=== PATIENT | female | born 1985 | race Caucasian/White ===

== ENCOUNTER 2020-05-13 05:30 | Inpatient (IN) | payer MEDICAID, SELFPAY ==
[2020-05-13] VITALS (35 sets, daily range): BP systolic 116–139; BP diastolic 70–95; PULSE 77–111; RESP 16–17; TEMP 36.3–36.7; O2SAT 94–98; BMI 34.2
[2020-05-13] MEDS: lactated ringers 1,000 ML 999 ML IV ×2 (06:30→07:35)
[2020-05-13 06:41] LABS: Basophils % 0.3 %; Eosinophils # 0.2 10^3/uL (0.0-0.8); Eosinophils % 1.5 %; Hematocrit 36.7 % (37.0-47.0); Hemoglobin 12.2 g/dL (11.5-15.3); Lymphocytes # 3.2 10^3/uL (0.8-4.8); Lymphocytes % 22.3 %; Mean Corpuscular HGB Conc 33.2 g/dL (30.0-36.0); Mean Corpuscular Hemoglobin 28.5 pg (28.0-34.0); Mean Corpuscular Volume 85.7 fL (81-99); Monocytes % 6.9 %; Neutrophils # 9.89 10^3/uL (1.8-7.7); Neutrophils % 68.7 %; Nucleated Red Blood Cells % 0 %; Platelet Count 190 10^3/cmm (130-400); Red Blood Count 4.28 10^6/uL (4.1-5.3); Red Cell Distribution Width 13.2 % (12.1-15.1); White Blood Count 14.4 10^3/uL (4.0-10.0)
--- NOTE | 2020-05-13 06:57 | ANES.PREANE2 ---
Pre-Anesthetic Assessment Pre-Anesthetic Assessment: Height/Weight: Pulse BP Pulse Ox 93 139/87 97 05/13/20 06:54 05/13/20 05:55 05/13/20 06:54 Preop Diagnosis: prior . Undesired fertility Proposed Procedure: Operation Date: 05/13/20 07:50 Proposed Procedures p Section Repeat With Tubal(Not Applicable) - Hazel Ling MD Was Beta Pepper taken within 24 hours: N/A Last Intake: 00:00 Social: Social History: Tobacco Packs per day: 0.5 Exam: Pre-Anes Outpt Exam: alert, oriented x 3, clear to auscultation bilaterally and regular rate & rhythm Airway: Submandibular: WNL Cervical ROM: WNL MP: 2 Dentition: Full History/ROS: No significant history except as noted and No significant complaints Pulmonary: Pulmonary: None reported CV/HEM: CV/HEM: None reported : : None reported Hepatic: Hepatic: None reported GI: GI: GERD Metabolic: Metabolic: DM Comments: Gestational. Diet controlled Musc/skel: Musc/skel: None reported Neuropsych: Neuropsych: None reported Anesthetic Plan: ASA status: 2 Anesthesia: Anesthesia Evaluation and Regional (specify below) Other: SAB Risk of > 500 ml blood loss (7ml/kg in children): No Meds/Allergies Current Medications: Current Medications Generic Name Dose Route Start Last Admin Trade Name Freq PRN Reason Stop Dose Admin Lactated Ringer's 1,000 mls @ 999 m ls/hr 05/13/20 06:10 05/13/20 06:30 Lactated Ringers IV 05/13/20 07:10 999 mls/hr .Q1H1M ONE Administration Data Anesthesia CBC & Chem 7: 05/13/20 06:23 Other Labs: Laboratory Results - last 48 hr 05/13/20 06:23 WBC 14.4 H RBC 4.28 Hgb 12.2 Hct 36.7 L MCV 85.7 MCH 28.5 MCHC 33.2 RDW 13.2 Plt Count 190 MPV 12.0 H Neut % (Auto) 68.7 Lymph % (Auto) 22.3 [place] % (Auto) 6.9 Eos % (Auto) 1.5 Baso % (Auto) 0.3 Neut # (Auto) 9.89 H Lymph # (Auto) 3.2 [place] # (Auto) 1.0 H Eos # (Auto) 0.2 Baso # (Auto) 0.0 Nucleated RBC % (auto) 0 Nucleated RBCs # 0.0 Cardiac Studies: No Data to Display
[2020-05-13] MEDS: metoclopramide 5 mg/mL SDV 2 mL 10 MG IVP (07:36)
[2020-05-13] MEDS: citric acid-sodium citrate 30 mL UDC PO (07:36)
[2020-05-13] MEDS: famotidine 20 mg/2 mL INJ IVP (07:36)
[2020-05-13 07:47] LABS: Amphetamines Screen Urine Negative (Negative); Barbiturates Screen Urine Negative (Negative); Benzodiazepines Screen Urine Negative (Negative); Cocaine Screen Urine Negative (Negative); Opiate Screen Urine Negative (Negative); PCP Screen Urine Negative (Negative); THC Screen Urine Positive (Negative)
--- NOTE | 2020-05-13 09:17 | P.HP_ITS ---
Providers/Chief Complaint Admitting Physician: Hazel Ling MD Chief Complaint: repeat c section with tubal History of Present Illness Elmira Michaels is a 35 year old female at 39 weeks gestation with a history of prior section who presents for repeat section along with bilateral tubal ligation. Last week at 38 weeks was her first visit with me. She was a transfer due to moving. She started late care at 20 weeks in [place] at [facility]. She had well controlled, diet controlled gestational diabetes mellitus with a hemoglobin A1c of 5.6. She was Covid negative GBS unknown GC chlamydia not detected, rubella immune, RPR nonreactive, HIV nonreactive, hep B surface antigen nonreactive, blood type A+ antibody negative Review of Systems Const: Denies: fever(s), chills or body aches Eyes: Denies: change in vision ENMT: Denies: throat pain Card: Denies: chest pain or palpitations Resp: Denies: dyspnea or productive cough GI: Denies: abdominal pain or vomiting : Denies: flank pain or difficulty voiding Musc: Denies: joint redness or limited range of motion Skin/Breast: Denies: rash Neuro: Denies: headache(s) or numbness in extremities Endo: Denies: polyuria or polydipsia Medications/Allergies Home Medications Medication Instructions Recorded Confirmed Last Taken Type ferrous sulfate [Iron (ferrous 325 mg PO DAILY 05/13/20 05/13/20 05/11/20 Hi story sulfate)] [id number] 1 tab PO DAILY 05/13/20 05/13/20 05/11/20 History [] Allergies Allergy/AdvReac Type Severity Reaction Status Date / Time acetaminophen Allergy ADR-Itching Verified 05/13/20 07:54 [From Darvocet-N] Penicillins Allergy ADR-Itching Verified 05/13/20 07:54 propoxyphene Allergy ADR-Itching Verified 05/13/20 07:54 [From Darvocet-N] Sulfa (Sulfonamide Allergy ADR-Swelling Verified 05/13/20 07:54 Antibiotics) of the Eye PFSH Acute PFSH: Medical History (Updated 05/13/20 @ 09:41 by Hazel Ling MD) Anxiety and depression Surgical History (Updated 05/13/20 @ 09:39 by Hazel Ling MD) Previous section Social History (Updated 05/13/20 @ 09:23 by Hazel Ling MD) Smoking and tobacco status: current every day smoker cigarettes Packs smoked per day: 0.5 [ Other cigarette details: She did cut down in from over 1 pack/day ] Alcohol intake: former Former alcohol use details: Occasional, prior to Substance/Drug Use: former Date of last use: prenatals positive for marijuana Household members: spouse Female Reproductive History: : 4 Para: 2 Spontaneous abortions: Yes Other female reproductive history: First 40 weeks low transverse section for failure to progress Second 40 weeks Third spontaneous Fourth current Vitals/I&O/Wt Last Vital Signs Pulse 90 05/13/20 07:29 Resp 17 05/13/20 06:10 BP 139/87 05/13/20 05:55 Pulse Ox 97 05/13/20 07:29 05/12/20 05/13/20 05/13/20 22:59 06:59 14:59 Output Total 50 / 50 Balance -50 / -50 Weight last 48 hrs Weight 212 lb Physical Exam Const: COMMON NORMALS: no acute distress GENERAL APPEARANCE: cooperative and comfortable HENMT: COMMON NORMALS: normocephalic and atraumatic Chest: COMMONS NORMALS: normal inspection of the chest Resp: COMMON NORMALS: normal respiratory effort EFFORT & INSPECTION: Yes able to speak in complete sentences AUSCULTATION: clear to auscultation bilaterally Cardio: COMMON NORMALS: regular rate and regular rhythm GI: COMMON NORMALS: non-tender (Gravid) Extremity: GENERAL: No calf tenderness Neuro: SENSORIUM/ORIENTATION: Yes alert, Yes oriented to person and Yes oriented to place Data : 05/13/20 06:23 A&P Assessment and plan (1) History of section complicating : Plan for repeat section Status: Acute (2) Encounter for sterilization: From her first visit last week the patient was adamant about having a tubal ligation. She knows it is permanent and not reversible and is requesting it. Status: Acute (3) Late care: Status: Acute (4) Diet controlled gestational diabetes mellitus (GDM) in third trimester: Status: Acute (5) with 39 completed weeks gestation: Status: Acute (6) Tobacco use affecting in third trimester, antepartum: Status: Acute Attestations Medical Necessity Statement*: Routine surgery and postoperative care Coding Level of Care Code Acute Reinsurance Accountant for Chg Fwd Diagnoses History of section complicating O34.219 Encounter for sterilization Z30.2 Late care O09.30 Diet controlled gestational diabetes mellitus (GDM) in third trimester O24.410 with 39 completed weeks gestation Z3A.39 Tobacco use affecting in third trimester, antepartum O99.333
--- NOTE | 2020-05-13 09:42 | PM.OP ---
Operative Report Date of procedure: May 13, 2020 Pre-op Diagnosis: prior . Undesired fertility Post-op diagnosis: same Procedure Done: Repeat low transverse section Via Pfannenstiel skin incision Bilateral tubal ligation Specimens removed/disposition: Vertex male weight 2940 g, 6 pounds 8 ounces, Apgars 8 and 9 Pathology: Segments of right and left fallopian tubes Anesthesia: Other (Hazel Ling MD) Estimated blood loss (mL): 900 IV fluids (mL): 2,400 Urine output (mL): 150 Condition: stable Disposition: floor Procedure: After informed consent the patient was taken to the OR where she was administered spinal anesthesia. She was prepped and draped in normal sterile fashion in dorsal supine position with a left lateral tilt. A Pfannenstiel skin incision was made through her prior scar and carried through to the underlying layer of fascia sharply. The fascial incision was then extended laterally using the Mayos. The fascia was grasped with Jorge A clamps and the underlying rectus muscles were dissected off. The peritoneum was then entered bluntly using a hemostat. The incision site was manually stretched. The bladder blade was then inserted and the vesicouterine peritoneum was identified and entered sharply using the Metzenbaums. The bladder flap was then created digitally and the bladder blade was reinserted Uterine incision was made in a transverse fashion in the lower uterine segment. Amniotic rupture of membranes was performed sharply and clear fluid was noted. The infant was delivered atraumatically with bulb suction of the mouth and nares at delivery. The cord was clamped and cut and the was handed to the waiting pediatric nurse. Cord blood was obtained. The placenta was delivered grossly intact and normal to inspection using just fundal pressure. The uterus was exteriorized from the abdomen. There was a large caliber bleeding vessel in the left lateral aspect of the incision and this was clamped using a ring forcep. This accounts for the majority of the blood loss. It was then tied off using 0 chromic. 0 chromic was used in a running locked fashion to close the first layer of the uterus. A second layer of the same suture was then used in an imbricating manner. Excellent hemostasis was obtained. The right fallopian tube was then grasped with a Ajay and a midportion of the tube was ligated and excised. Tubal ostia were identified. Segment of tube was sent to pathology. The remaining cut portions of the tube were coagulated using the Bovie. The left fallopian tube was then grasped with a Ajay and a proximal portion of the tube was ligated and excised. Tubal ostia were identified. The specimen was sent to pathology. The remaining cut portions of the tube were coagulated using the Bovie. The uterus was then gently returned to the abdomen. Irrigation was used to clear the gutters of clots and debris and the uterine incision was reinspected for hemostasis. The peritoneum was then reapproximated using 4-0 Vicryl in a running fashion. There was a tear in the left rectus muscle that became hemostatic with pressure. The subfascial tissue was inspected for hemostasis and then the fascia was reapproximated using 0 Vicryl in a running fashion. The subcutaneous tissue was irrigated and any small bleeders were coagulated using the Bovie. The subcutaneous tissue was then reapproximated using 4-0 Vicryl in a running fashion. The skin was then reapproximated using 4-0 Vicryl on a Finn needle. Steri-Strips and a pressure bandage were applied and patient went to recovery in stable condition Sponge instrument and needle counts were correct
--- NOTE | 2020-05-13 12:12 | PC.RESP ---
Smoking Cessation information sent to patient.
[2020-05-13] MEDS: ketorolac 30 mg/mL INJ IVP ×2 (12:47→18:15)
--- NOTE | 2020-05-13 14:40 | ANE.PACU2 ---
Inpatient post-anesthesia follow up: Airway intact: Yes Vital signs: Temperature 97.9 F Pulse Rate 98 Respiratory Rate 16 Blood Pressure 120/77 Pulse Oximetry 94 Oxygen Delivery Me thod Room Air Oxygen Flow Rate Fraction of Inspir ed Oxygen Hydration adequate: Yes Nausea and vomiting: No Pain level: 1 Mental status: Baseline
[2020-05-13] MEDS: ondansetron 2 mg/ML SDV 2 mL 4 MG IVP (14:48)
--- NOTE | 2020-05-13 15:31 | PC.NURSE ---
Pt requested to get out of bed at this time. This nurse assisted pt to edge of bed and had her sit and dangle her feet. Pt belched a few times and pt felt nauseous and had a small amount of clear emesis. Pt reported she felt better after vomiting. This nurse then assisted pt to the chair and pt reported feeling nauseas again and had a large amount of clear emesis. This nurse gave pt 4mg Zofran IV Push.
[2020-05-13] MEDS: dextrose 5%-lactated ringers 1,000 ML 125 ML IV (17:30)
[2020-05-13] MEDS: ferrous sulfate EC 325 mg Tablet PO (18:15)
[2020-05-13] MEDS: docusate sodium 100 mg Capsule PO (18:15)
[2020-05-13] MEDS: sodium chloride 0.9% 500 ML 999 ML IV (19:20)
[2020-05-13 22:11] LABS: Hematocrit 29.5 % (37.0-47.0); Hemoglobin 9.8 g/dL (11.5-15.3); Mean Corpuscular HGB Conc 33.2 g/dL (30.0-36.0); Mean Corpuscular Hemoglobin 28.7 pg (28.0-34.0); Mean Corpuscular Volume 86.5 fL (81-99); Mean Platelet Volume 12.1 fL (7.4-10.4); Platelet Count 147 10^3/cmm (130-400); Red Blood Count 3.41 10^6/uL (4.1-5.3); Red Cell Distribution Width 13.2 % (12.1-15.1); White Blood Count 12.2 10^3/uL (4.0-10.0)
[2020-05-14] VITALS: BP 124/75; PULSE 82; RESP 16; TEMP 36.7; O2SAT 97
[2020-05-14] MEDS: ketorolac 30 mg/mL INJ IVP (00:04)
[2020-05-14] MEDS: prenatal vitamin Capsule 1 CAP PO (08:32)
[2020-05-14] MEDS: docusate sodium 100 mg Capsule PO ×2 (08:32→17:22)
[2020-05-14] MEDS: HYDROcodone-acetaminophen 5-325 mg Tablet PO ×2 (08:32→17:22)
[2020-05-14] MEDS: ferrous sulfate EC 325 mg Tablet PO ×2 (08:32→17:22)
[2020-05-14] MEDS: ibuprofen 800 mg tablet PO ×3 (09:34→21:14)
--- NOTE | 2020-05-14 10:03 | PM.OBGYPN ---
GIS MAPPING TECHNICIAN Subjective Subjective: Interval history: Doing well. Decreased vaginal bleeding and she passed a little bit of flatus yesterday. Labor: Amniotic Membrane Status: Intact Monitor Mode: External Contraction Pattern: Occasional Vitals/I&O/Wt Last Vital Signs Temp 98.1 F 05/14/20 00:00 Pulse 82 05/14/20 00:00 Resp 16 05/14/20 00:00 BP 124/75 05/14/20 00:00 Pulse Ox 97 05/14/20 00:00 05/13/20 05/14/20 05/14/20 22:59 06:59 14:59 Intake Total 231.25 / 2631.25 1000 / 1000 Output Total 680 / 2380 900 / 3280 1200 / 1200 Balance -448.75 / 251.25 -900 / -648.75 -200 / -200 Weight last 48 hrs Weight 212 lb Physical Exam Const: COMMON NORMALS: alert ORIENTATION/CONSCIOUSNESS: Yes oriented to person, Yes oriented to place and Yes oriented to time HENMT: COMMON NORMALS: normocephalic and atraumatic HEAD & SCALP: normocephalic and atraumatic Eye: COMMON NORMALS: Equal, round and reactive pupils present and EOMs intact bilaterally PUPIL: Yes Equal, round and reactive pupils present Chest: COMMONS NORMALS: normal inspection of the chest Resp: COMMON NORMALS: normal respiratory effort, No retractions and clear to auscultation bilaterally AUSCULTATION: clear to auscultation bilaterally Cardio: COMMON NORMALS: regular rate and regular rhythm RHYTHM: regular rhythm Extremity: GENERAL: No calf tenderness and No edema Neuro: SENSORIUM/ORIENTATION: Yes alert, Yes oriented to person, Yes oriented to place and Yes oriented to time Urinary Catheter Management^: Najera: Cath Placed During This Visit: yes, but has since been removed by the nurse Reason for Continuing Indwelling Catheter: Decision to DC Catheter Urinary Catheter Date of Insertion: 05/13/20 Urinary Catheter Time of Insertion: 07:48 Date Urinary Catheter Removed: 05/14/20 Time Urinary Catheter Discontinued: 08:50 Data : 05/13/20 21:50 A&P Assessment and plan (1) Status post repeat low transverse section: Postop day #1. The patient is doing well. Continue routine postoperative care Status: Acute (2) Diet controlled gestational diabetes mellitus (GDM) in third trimester: She was well diet controlled. Status: Acute (3) Tobacco use affecting in third trimester, antepartum: Status: Acute (4) with 39 completed weeks gestation: Status: Acute (5) Late care: Status: Acute Attestations Medical Necessity Statement*: Routine postoperative and care Coding Level of Care Code Acute Sql Database Developer for Chg Fwd Diagnoses Status post repeat low transverse section Z98.891 Diet controlled gestational diabetes mellitus (GDM) in third trimester O24.410 Tobacco use affecting in third trimester, antepartum O99.333 with 39 completed weeks gestation Z3A.39 Late care O09.30
[2020-05-14 10:43] VITALS: BP 113/75; PULSE 79; RESP 17; TEMP 36.8; O2SAT 98
[2020-05-14 15:09] VITALS: BP 126/68; PULSE 72; RESP 16; TEMP 36.8
[2020-05-15] MEDS: HYDROcodone-acetaminophen 5-325 mg Tablet PO ×2 (00:01→09:37)
[2020-05-15 04:22] VITALS: BP 141/88; PULSE 84; RESP 16; O2SAT 97
[2020-05-15] MEDS: ibuprofen 800 mg tablet PO (09:31)
[2020-05-15] MEDS: docusate sodium 100 mg Capsule PO (09:31)
[2020-05-15] MEDS: ferrous sulfate EC 325 mg Tablet PO (09:31)
[2020-05-15] MEDS: prenatal vitamin Capsule 1 CAP PO (09:31)
[2020-05-15 09:50] VITALS: BP 137/84; PULSE 72; RESP 18; TEMP 36.7
--- NOTE | 2020-05-15 11:08 | PM.OBGYDC ---
Discharge Providers STIFF LEG DERRICK OPERATOR Date of Admission: 05/13/20 05:30 Date of Discharge: 05/15/20 Attending Provider at Admission: Hazel Ling MD Attending Provider at Discharge: Hazel Ling MD Diagnoses at Discharge Discharge Diagnosis (1) Status post repeat low transverse section: Status: Acute (2) Diet controlled gestational diabetes mellitus (GDM) in third trimester: Status: Acute (3) Tobacco use affecting in third trimester, antepartum: Status: Acute (4) with 39 completed weeks gestation: Status: Acute (5) Late care: Status: Acute Reason for Visit Reason for Visit: repeat c section with tubal Hospital Course Hospital Course This is a 35-year-old G4 now P3 who was admitted for repeat section and bilateral tubal ligation. There were no complications of the procedure. Postoperatively the patient did well. She was ambulating, tolerating a regular diet, had good pain control on oral medications and was comfortable with discharge home. Information Peripartum Data: Infant Delivery Method: Physical Exam HENMT: COMMON NORMALS: normocephalic HEAD & SCALP: normocephalic Eye: COMMON NORMALS: Equal, round and reactive pupils present and EOMs intact bilaterally PUPIL: Yes Equal, round and reactive pupils present Chest: COMMONS NORMALS: normal inspection of the chest Resp: COMMON NORMALS: normal respiratory effort and clear to auscultation bilaterally AUSCULTATION: clear to auscultation bilaterally Cardio: COMMON NORMALS: regular rate and regular rhythm RATE: regular rate RHYTHM: regular rhythm GI: COMMON NORMALS: Soft to palpation (Fundus firm U- 2) and No hepatosplenomegaly present INSPECTION: Yes incision (Clean dry and intact) PALPATION: Yes Soft to palpation (Fundus firm U- 2) and Yes No hepatosplenomegaly present Extremity: COMMON NORMALS: no pedal edema GENERAL: No calf tenderness Psych: COMMON NORMALS: mental status grossly normal and cooperative Urinary Catheter Management^: Najera: Cath Placed During This Visit: yes, but has since been removed by the nurse Reason for Continuing Indwelling Catheter: Decision to DC Catheter Urinary Catheter Date of Insertion: 05/13/20 Urinary Catheter Time of Insertion: 07:48 Date Urinary Catheter Removed: 05/14/20 Time Urinary Catheter Discontinued: 08:50 Discharge Data Data Completed and Pending: Pending at discharge Category Date Time Status Pathology: Surgic al [PTH] Routine Pth 05/13/20 10:21 Ordered Vitals: Last Vital Signs Temp 98.0 F 05/15/20 09:50 Pulse 72 05/15/20 09:50 Resp 18 05/15/20 09:50 BP 137/84 05/15/20 09:50 Pulse Ox 97 05/15/20 04:22 Discharge Plan Discharge Patient Disposition: Home Condition: Stable Prescriptions: New ibuprofen 800 mg Tablet 800 mg PO TID PRN (Reason: Abdominal Discomfort) Qty: 30 RF: 0 hydrocodone-acetaminophen 5-325 mg Tablet 1 - 2 tab PO Q4H PRN (Reason: Moderate To Severe Pain) Qty: 20 RF: 0 DOK 100 mg Capsule 100 mg PO BID Qty: 60 RF: 0 Continued Iron (ferrous sulfate) 325 mg (65 mg iron) Tablet 325 mg PO DAILY RF: 0 1 mg Tablet 1 tab PO DAILY RF: 0 Discharge Orders: Discharge Order (Routine); Ordered 05/15/20 Ordered By: Hazel Ling Referrals: Hazel Ling MD [Physician] - 1-3 days Discharge Diet: Usual diet Discharge Activity: Limit activity as instructed Patient Instructions: OB - Adalberto/Sushil, OB Discharge Report, OB Food/Drug Interaction Guide, OB Home Care Instructions, OB Care at Home, OB Home Care, OB Proud Parent Packet Discharge Attestations STIFF LEG DERRICK OPERATOR Time Spent in Discharge Care*: less than 30 min Coding Level of Care Code Acute Parking Enforcement Officer for Chg Fwd Diagnoses Status post repeat low transverse section Z98.891 Diet controlled gestational diabetes mellitus (GDM) in third trimester O24.410 Tobacco use affecting in third trimester, antepartum O99.333 with 39 completed weeks gestation Z3A.39 Late care O09.30
[2020-05-15 12:06] VITALS: BP 135/89; PULSE 77; RESP 18; TEMP 36.6
[2020-05-15 12:22] VITALS: BP 135/89; PULSE 77; RESP 18; TEMP 36.6
== END 2020-05-15 12:20 | disposition home or self-care (01) | DRG 785 ==
PROVIDERS: Admitting Provider Family Medicine; Visit Provider Family Medicine
PROC: 10D00Z1 Extraction of Products of Conception, Low, Open Approach (ICD-10-PCS; CPT 59514; principal; 2020-05-13 07:30)
DX: O24.420 Gestational diabetes mellitus in childbirth, diet controlled (principal); Z3A.39 39 weeks gestation of pregnancy; Z37.0 Single live birth; O99.334 Smoking (tobacco) complicating childbirth; F17.210 Nicotine dependence, cigarettes, uncomplicated; O34.211 Maternal care for low transverse scar from previous cesarean delivery; N85.8 Other specified noninflammatory disorders of uterus; Z30.2 Encounter for sterilization
CPT/HCPCS: 36415; 58611; 80306; 85025; 85027; 86900; 88302; 98960; J0690; J1885; J2274; J2370; J2405; J2765; J3010; J3490; J7030; J7040

== ENCOUNTER 2020-12-14 09:19 | Outpatient (CLI) | payer MEDICAID, SELFPAY ==
--- NOTE | 2020-12-14 10:14 | CT_ITS ---
WS: [id number] CT ABDOMEN AND PELVIS NONCONTRAST HISTORY: LLQ ABDOMINAL PAIN TECHNIQUE: Imaging performed through the abdomen and pelvis. Coronal and sagittal reformats are submi tted. All CT scans at [facility] use at least one of these dose optimization techniques: automated exposure control; mA and/or kV adjustment per patient size (includes targeted exams where d ose is matched to clinical indication); or iterative reconstruction. DLP: 1010.74 mGycm COMPARISON: None available. Lower thorax: Lung bases are clear. Visualized heart is normal. No hiatal hernia. Liver: Moderate hepatomegaly and severe hepatic steatosis. No bile duct dilatation. Gallbladder: Normal gallbladder. Pancreas: Normal size and attenuation. Normal pancreatic duct. No pancreatitis or mass. Spleen: Spleen is mildly enlarged at 13.9 cm in length. Adrenal glands: Normal. No mass. Right kidney: Normal size kidney with no mass or hydronephrosis. Left kidney: Normal size kidney with no mass or hydronephrosis. Aorta: Normal abdominal aorta, no aneurysm or atherosclerosis. There are tiny mesenteric lymph nodes. GI tract: Normal appendix. No GI tract obstruction. Abdominal wall: Intact abdominal wall. No soft tissue nodules are noted along the abdominal wall near the scar site of the LEFT lower quadrant. Pelvis: Normal size anteverted uterus. Uterus is midline. Ovaries are normal size. No adenopathy. Osseous structures: Degenerative disc disease at L4-5. CT/CT abdomen pelvis wo con [id number] IMPRESSION: 1. No acute abdominal or pelvic abnormalities. 2. Hepatosplenomegaly and severe hepatic steatosis. 3. No significant adenopathy. 4. No midline or LEFT lower quadrant soft tissue masses. No hernias.
[2020-12-14] MEDS: iohexol 300 mg/mL 50 mL Btl PO (10:25)
== END 2020-12-14 09:20 | disposition home or self-care (01) ==
PROVIDERS: Visit Provider Family Medicine
DX: R10.32 Left lower quadrant pain (principal); R16.2 Hepatomegaly with splenomegaly, not elsewhere classified; K76.0 Fatty (change of) liver, not elsewhere classified
CPT/HCPCS: 74176; Q9967

== ENCOUNTER 2021-02-27 11:57 | Emergency (ER) | payer MEDICAID, SELFPAY ==
[2021-02-27 12:15] VITALS: BP 137/84; PULSE 89; RESP 18; TEMP 36.6; O2SAT 97; BMI 34.5
--- NOTE | 2021-02-27 13:09 | W.ED.BACK ---
HPI - Back Pain/Injury General: Chief Complaint: Back Pain/Injury Stated Complaint: Back Pain Time Seen by Provider: 02/27/21 12:22 History of Present Illness: HPI Narrative: Patient is a 35-year-old female comes to the ED with lower back pain. Patient says she has had low back pain in the past. She works at [employer] and says she bent over to lift something and felt like she pulled a muscle in her lower back. Injury occurred about 2 days ago. She noticed today when she woke up it was more stiff and painful in her lower back. The pain stays in the lower back left side and does not radiate anywhere. She rates her pain currently an 8 out of 10. Any movement with her core torso causes pain. Resting helps alleviate pain. Denies any bladder or bowel incontinence, pelvic anesthesia, numbness or tingling to lower extremities or any weakness to lower extremities. Associated symptoms: Deny abdominal pain, chills, dysuria, fatigue, fever(s), hematuria, nausea or vomiting Review of Systems Const: Denies: fever(s), chills or fatigue Eyes: Denies: change in vision or eye discomfort ENMT: Denies: throat pain, odynophagia, nasal discharge or nasal congestion Card: Denies: chest pain, palpitations, edema, swelling of feet/ankles, dyspnea on exertion or orthopnea Resp: Denies: dyspnea, productive cough or non-productive cough GI: Denies: abdominal pain, nausea, vomiting, diarrhea, constipation or hematochezia : Denies: flank pain, dysuria or hematuria Musc: Reports: back pain; Denies: neck pain or extremity swelling Skin/Breast: Denies: rash or new lesions Neuro: Denies: headache(s), numbness in extremities or weakness in extremities [facility] ED PFSH: Medical History Anxiety and depression Surgical History Previous section Social History Smoking and tobacco status: current every day smoker cigarettes Packs smoked per day: 0.5 [ Other cigarette details: She did cut down in from over 1 pack/day ] Alcohol intake: former Former alcohol use details: Occasional, prior to Household members: spouse Female Reproductive History: Para: 2 Spontaneous abortions: Yes Physical Exam Const: COMMON NORMALS: no acute distress, patient oriented x3 and alert GENERAL APPEARANCE: cooperative and comfortable HENMT: COMMON NORMALS: normocephalic HEAD & SCALP: normocephalic MOUTH: Normal oral and palatal mucosa present THROAT: posterior oropharynx normal and uvula midline Neck/C-Spine: COMMON NORMALS: supple GENERAL: Yes normal visual inspection Resp: COMMON NORMALS: normal respiratory effort, No retractions, No use of accessory muscles and clear to auscultation bilaterally AUSCULTATION: clear to auscultation bilaterally Cardio: COMMON NORMALS: regular rate, regular rhythm, S1 normal heart sound present, S2 normal heart sound present, No gallops present (Cardio), No clicks present (Cardio), No murmurs present (Cardio) and Peripheral pulses 2+ throughout RATE: regular rate RHYTHM: regular rhythm HEART SOUNDS: S1 normal heart sound present and S2 normal heart sound present PERIPHERAL PULSES: Peripheral pulses 2+ throughout GI: COMMON NORMALS: Normal to inspection, nondistended, normoactive bowel sounds present, Soft to palpation, non-tender and no masses PALPATION: Yes Soft to palpation : COMMON NORMALS: Yes no CVA tenderness BLADDER/KIDNEY EXAM: Yes no CVA tenderness Back/Pelvis: COMMON NORMALS: no CVA tenderness LUMBAR SPINE/LOWER BACK: Yes pain with ROM, No lumbar spinal tenderness and Yes paraspinal muscle tenderness Lumbar paraspinal muscle tenderness: left left lumbar paraspinal muscle tenderness: L3, L4 and L5 Extremity: COMMON NORMALS: normal to inspection Neuro: COMMON NORMALS: patient oriented x3 and moves all extremities SENSORIUM/ORIENTATION: Yes alert Skin: GENERAL SKIN EXAM: dry skin Course Vital Signs: Vital signs: Vital Signs Temperature 97.9 F 02/27/21 12:15 Pulse Rate 89 02/27/21 12:15 Respiratory Rate 18 02/27/21 12:15 Blood Pressure 137/84 02/27/21 12:15 Pulse Oximetry 97 02/27/21 12:15 MDM - Back Pain/Injury MDM Narrative: Medical decision making narrative: Patient is a 35-year-old female comes to the ED with left lower back pain. Patient states she was doing some lifting at work and strained her back. Denies any cauda equina symptoms. No pain radiating down the legs. All pain is located in the left lower back. She has some left-sided lumbar paraspinal muscle tenderness noted. Patient was given a dose of Toradol and Norflex while here in the ED. Patient was diagnosed with a strain of lumbar region and discharged home with a prescription for Celebrex and cyclobenzaprine. She was told to follow-up with her PCP in 7 to 10 days for reevaluation. Return to ED precautions given. Patient understood agree with plan. Discharge Plan Discharge Patient Disposition: Home Clinical Impression: Strain of lumbar region Qualifiers: Encounter type: initial encounter Qualified Code(s): S39.012A - Strain of muscle, fascia and tendon of lower back, initial encounter Condition: Stable Prescriptions: New Celebrex 100 mg capsule 100 mg PO BID PRN (Reason: pain) Qty: 20 RF: 0 cyclobenzaprine 10 mg tablet 10 mg PO BID PRN (Reason: muscle spasm) Qty: 20 RF: 0 No Action Iron (ferrous sulfate) 325 mg (65 mg iron) Tablet 325 mg PO DAILY RF: 0 [id number]-FA 1 mg Tablet 1 tab PO DAILY RF: 0 ibuprofen 800 mg Tablet 800 mg PO TID PRN (Reason: Abdominal Discomfort) Qty: 30 RF: 0 hydrocodone-acetaminophen 5-325 mg Tablet 1 - 2 tab PO Q4H PRN (Reason: Moderate To Severe Pain) Qty: 20 RF: 0 DOK 100 mg Capsule 100 mg PO BID Qty: 60 RF: 0 Discharge Orders: Discharge ED (Routine); Ordered 02/27/21 Ordered By: Deny Potter Referrals: Marilin Johnson PA [Primary Care Provider] - Discharge Diet: Regular Discharge Activity: Increase activity as tolerated Patient Instructions: Low Back Strain (ED), Lower Back Exercises (ED) Activity Restrictions/Additional Instructions: Follow-up with medical provider as directed in 7 to 10 days for reevaluation. Take medications as prescribed. Rest, limit lifting and activity for the next couple days to allow for back to heal. Apply cold pack or heat on back to help with symptoms. Cyclobenzaprine is a muscle relaxer and can cause some drowsiness so take at night before going to bed. Return to the ER or your medical provider if condition worsens. Please read and understand discharge instructions. Thank you for choosing [facility] for your healthcare needs today. Please realize this is an emergency room and that we are providing you with a medical screening exam and this may not be complete and all inclusive of all the testing and or work up that you may need to determine your ailment or severity of your illness. It is very important that you follow up as instructed or that you return to the Emergency Department should you have concerns or if your condition changes or worsens in any way. Coding Level of Care Code ED Sorting Machine Operator for John Castrejon Exam Comprehensive
[2021-02-27] MEDS: ketorolac 60 mg/2 mL INJ IM (13:45)
[2021-02-27] MEDS: orphenadrine 30 mg/mL Inj 2 mL 60 MG IM (13:45)
== END 2021-02-27 13:53 | disposition home or self-care (01) ==
PROVIDERS: Emergency Provider Physician Assistant; PCP Physician Assistant
DX: S39.012A Strain of muscle, fascia and tendon of lower back, initial encounter (principal); M54.9 Dorsalgia, unspecified; X50.0XXA Overexertion from strenuous movement or load, initial encounter; Y99.0 Civilian activity done for income or pay; F17.210 Nicotine dependence, cigarettes, uncomplicated; Z79.891 Long term (current) use of opiate analgesic
CPT/HCPCS: 96372; 99283; J1885; J2360